=== PATIENT | male | born 1965 | race Caucasian/White ===

== ENCOUNTER 2023-02-18 07:02 | Day surgery (SDC) | payer MEDICAID ==
[~2023-02-18] VITALS: Ht 182.9 cm; Wt 119.7 kg
[2023-02-18] MEDS ORDERED: MEPERIDINE 100 MG INJ. 100 MG/ML VIAL ONE (08:38)
[2023-02-18] MEDS ORDERED: MIDAZOLAM HCL 5 MG/5 ML VIAL ONE (08:39)
[2023-02-18] MEDS ORDERED: ONDANSETRON HCL 4 MG/2 ML VIAL ONE (08:58)
[2023-02-18 09:03] VITALS: O2SAT 96
[2023-02-18 11:05] VITALS: BP_SYST 111; PULSE 55; RESP 16
== END 2023-02-18 10:15 | disposition home or self-care (01) ==
LOC: SDS 07:02 → SMU 07:06 → SDS 10:15
PROVIDERS: ATTEND Internal Medicine Gastroenterology
DX: Z12.11 Encounter for screening for malignant neoplasm of colon (principal); D12.2 Benign neoplasm of ascending colon; D12.5 Benign neoplasm of sigmoid colon; K64.8 Other hemorrhoids; E11.9 Type 2 diabetes mellitus without complications; Z79.899 Other long term (current) drug therapy
CPT/HCPCS: 45385; 82962; 88305; 99153; 99152; G0378; J2250; J2405; J2175